=== PATIENT | female | born 1950 | race Native Hawaiian/Other Pacific Islander ===

== ENCOUNTER 2022-05-31 18:55 | Emergency (ER) | payer BC ==
[~2022-05-31] VITALS: Ht 162.6 cm; Wt 110.2 kg
[2022-05-31 23:20] VITALS: BP 178/78; TEMP 98.7
== END 2022-05-31 23:20 | disposition short-term general hospital (02) ==
LOC: ED 18:55
DX: S81.812A Laceration without foreign body, left lower leg, initial encounter (principal); W19.XXXA Unspecified fall, initial encounter; W22.8XXA Striking against or struck by other objects, initial encounter; Y92.59 Other trade areas as the place of occurrence of the external cause
CPT/HCPCS: 96365; 96372; 96375; 99285; J0690; J1885; J2270; J2405